=== PATIENT | male | born 1945 | race Asian ===

== ENCOUNTER 2020-03-17 12:14 | Emergency (ER) | payer MEDICARE, OTHER ==
[~2020-03-17] VITALS: Ht 170.2 cm; Wt 83.9 kg
[2020-03-17] MEDS ORDERED: Augmentin 875mg Tab ORAL ONE (12:45)
[2020-03-17] MEDS ORDERED: Tetanus/Diptheria/Pertussis IM ONE (12:45)
[2020-03-17 12:54] VITALS: BP 131/81
[2020-03-17] MEDS ORDERED: Lidocaine 2% 20mg/ml/EPI 0.01mg/ml 20ml ONE (13:02)
[2020-03-17] MEDS ORDERED: BACITRACIN15 GM TOPIC (13:19)
[2020-03-17] MEDS ORDERED: AUGMENTIN 875-1 EAC1 ORAL (13:19)
[2020-03-17] MEDS ORDERED: Bacitracin Oint UD TOPIC ONE ×2 (13:52→14:00)
[2020-03-17 14:14] VITALS: BP 125/78
--- NOTE | 2020-03-18 17:44 | Emergency Room Report ---
History of Present Illness General Chief Complaint: Animal Bite Source: Patient Present Illness HPI 74-year-old male presents status post dog bite. States his neighbors dog bit him on the right thumb and second finger. Today. Tetanus is not up-to-date. Denies pain. Denies any active bleeding. Denies any other injuries. No other aggravating relieving factors. Denies any other associated symptoms Allergies: Coded Allergies: No Known Allergies (Unverified , 03/17/20) COVID-19 Screening Contact w/high risk pt: No Experienced COVID-19 symptoms?: No COVID-19 Testing performed COUNSELOR CAMP: No - 6 months ago COVID-19 Screening: Negative COVID-19 COVID-19 Testing Source: clinic Patient History Past Medical History: none Past Surgical History: none Pertinent Family History: none Social History: Denies: smoking, alcohol use, drug use Immunizations: UTD Reviewed Nursing Documentation: PMH: Agreed; PSxH: Agreed Nursing Documentation-PMH Past Medical History: No Stated History Review of Systems All Other Systems: negative except mentioned in HPI Physical Exam Vital Signs Date Time Temp Pulse Resp B/P (MAP) Pulse Ox O2 Delivery O2 Flow Rate FiO2 03/17/20 12:16 98.2 92 18 138/85 (102) 97 Room Air Sp02 EP Interpretation: reviewed, normal General Appearance: no apparent distress, alert, GCS 15, non-toxic Head: normocephalic, atraumatic Eyes: bilateral eye normal inspection, bilateral eye PERRL ENT: hearing grossly normal, normal pharynx, no angioedema, normal voice Neck: full range of motion, supple/symm/no masses Respiratory: chest non-tender, lungs clear, normal breath sounds, speaking full sentences Cardiovascular #1: regular rate, rhythm, no edema Cardiovascular #2: 2+ carotid (R), 2+ carotid (L), 2+ radial (R), 2+ radial (L), 2+ dorsalis pedis (R), 2+ dorsalis pedis (L) Gastrointestinal: normal bowel sounds, non tender, soft, non-distended, no guarding, no rebound Rectal: deferred Genitourinary: normal inspection, no CVA tenderness Musculoskeletal: back normal, normal range of motion, gait/station normal, non- tender Neurologic: alert, motor strength/tone normal, oriented x3, sensory intact, responsive, speech normal Psychiatric: judgement/insight normal, memory normal, mood/affect normal, no suicidal/homicidal ideation Reflexes: 3+ bicep (R), 3+ bicep (L), 3+ tricep (R), 3+ tricep (L), 3+ knee (R), 3+ knee (L) Skin: laceration - 1.5cm laceration distal R thumb Lymphatic: no adenopathy Procedures Laceration/Wound Repair Laceration/Wound Repair : Consent: Verbal Wound Location: upper extremity - R thumb Wound's Depth, Shape: linear Wound Explored: clean Betadine Prep?: Yes Anesthesia: 1% Lidocaine Wound Debrided: minimal Wound Repaired With: sutures Suture Size/Type: 4:0, proline Layer Closure?: No Sterile Dressing Applied?: Yes Splint Applied?: No Sling Applied?: No Patient Tolerated: Well Complications: None Medical Decision Making Diagnostic Impression: Primary Impression: Sutured skin wound Additional Impressions: Dog bite Qualified Codes: W54.0XXA - Bitten by dog, initial encounter Bite by animal ER Course hospital Course 74-year-old M presents ED c/o dog bite R hand Clinical course Patient placed on stretcher. After initial history and physical, wound is irrigated. I ordered bacitracin, Augmentin, Tdap Wound is gaping. We will provide few loose sutures to approximate. Safe for discharge with close outpatient follow-up. I will provide referrals Diagnosis -dog bite , sutureed skin wound Stable and discharged to home with prescription Rx bacitracin, augmentin. return to ED in 7-10 days for suture removal. Followup with PMD. Return to ED if symptoms recur or worsen Last Vital Signs Date Time Temp Pulse Resp B/P (MAP) Pulse Ox O2 Delivery O2 Flow Rate FiO2 03/17/20 14:14 98.2 77 18 125/78 98 Room Air Status: improved Disposition: HOME, SELF-CARE Condition: Stable Scripts Bacitracin (Bacitracin) 28.4 Gm Oint...g. 1 APPLIC TOPIC THREE TIMES A DAY, #28.3 GM Prov: Michelle Joshua 03/17/20 Amoxicillin/Potassium Clav 875-125* (AUGMENTIN 875-125 TABLET*) 1 Each Tablet 1 TAB ORAL TWICE A DAY for 7 Days, #14 TAB Prov: Michelle Joshua 03/17/20 Referrals: [facility] - Peds ER - Patient Instructions: Animal Bite Additional Instructions: Take medications as directed. TAKE ALL ANTIBIOTICS --- Sutures to be removed in 10 days ----- Follow up with a Primary Care Provider in 3-5 days, even if your symptoms have resolved. --Please review list of primary care clinics, if you do not already have a primary care provider Return sooner to ED if new symptoms occur, or current symptoms become worse. - Please note that this Emergency Department Report was dictated using [employer] office developer technology software, occasionally this can lead to er roneous entry secondary to interpretation by the dictation equipment. Andre Pastor MD Mar 18, 2020 17:44
== END 2020-03-17 14:14 | disposition home or self-care (01) ==
LOC: EMR 13:02
DX: S61.051A Open bite of right thumb without damage to nail, initial encounter (principal); W54.0XXA Bitten by dog, initial encounter; Y93.9 Activity, unspecified; Y92.9 Unspecified place or not applicable
CPT/HCPCS: 90471; 90715; 99283

== ENCOUNTER 2020-03-26 10:50 | Emergency (ER) | payer MEDICARE ==
[~2020-03-26] VITALS: Ht 170.2 cm; Wt 81.6 kg
[~2020-03-26 10:50] MED LIST: AUGMENTIN 875-1 EAC1 ORAL; BACITRACIN15 GM TOPIC
[2020-03-26 10:52] VITALS: BP 128/82
[2020-03-26] MEDS ORDERED: AUGMENTIN 875-1 EAC1 ORAL (11:05)
[2020-03-26 11:08] VITALS: BP 122/74
--- NOTE | 2020-03-26 11:13 | Emergency Room Report ---
History of Present Illness General Chief Complaint: Wound Recheck/Suture Removal Source: Patient Present Illness HPI Patient is a 74-year-old male who presents to the ER for suture removal. Patient was bit by dog on March 18 and had loosely placed sutures in the emergency room. Patient states that he has been on Augmentin and topical antibiotics. He denies any fever or chills. He complains of some localized pain but denies any discharge from the wound. Allergies: Coded Allergies: No Known Allergies (Unverified , 03/17/20) COVID-19 Screening Contact w/high risk pt: No Experienced COVID-19 symptoms?: No COVID-19 Testing performed FIELD OPERATIONS COORDINATOR: No Patient History Reviewed Nursing Documentation: PMH: Agreed; PSxH: Agreed Nursing Documentation-PMH Past Medical History: No Stated History Review of Systems All Other Systems: negative except mentioned in HPI Physical Exam Vital Signs Date Time Temp Pulse Resp B/P (MAP) Pulse Ox O2 Delivery O2 Flow Rate FiO2 03/26/20 10:52 97.3 73 16 128/82 100 Room Air Sp02 EP Interpretation: reviewed, normal General Appearance: no apparent distress, alert, GCS 15, non-toxic Head: normocephalic, atraumatic Eyes: bilateral eye normal inspection, bilateral eye PERRL ENT: EOM grossly intact, no angioedema Neck: full range of motion Respiratory: no respiratory distress, no accessory muscle use, speaking full sentences Cardiovascular #1: regular rate, rhythm Gastrointestinal: non tender, soft Rectal: deferred Musculoskeletal: other - Right thumb healing laceration with [address] it was in a gauze wrap. No discharge or signs of cellulitis. Partially healed. 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 2 out of 5 sutures removed. I have given him another prescription for Augmentin to prevent any infections. He will continue to use topical antibiotics. Patient advised to return to the ER in 5 days for suture removal. After discussing risks and benefits of further diagnostics, treatment plans, as well as indications for and risks of admission, the patient is agreeable to being discharged home. I have explained that their evaluation and treatment in the emergency department today is an important step towards them achieving better health but that their evaluation today is not intended to replace further evaluation and treatment by a physician in their local clinic. I have explained that while the current findings suggest no immediate life threatening emergency they will require further evaluation and treatment by a physician of their choice in their area. They understand that it will be necessary for them to review the final reports of their ED visit with their clinic physician. We have reviewed indications for return to the Emergency Department. I have explained that additional time may need to pass and/or additional testing as an outpatient may be necessary before a definitive diagnosis can be made. They tell me they are willing to follow up as instructed within the timeframe I recommend. They appear to understand what we discussed. Additionally they understand that if they are unable to be seen by an outpatient physician they are welcome, and in fact should, return to the Emergency Department for a repeat evaluation. The patient is stable at time of discharge. Last Vital Signs Date Time Temp Pulse Resp B/P (MAP) Pulse Ox O2 Delivery O2 Flow Rate FiO2 03/26/20 11:08 97.9 85 20 122/74 97 Room Air Disposition: HOME, SELF-CARE Condition: Stable Scripts Amoxicillin/Potassium Clav 875-125* (AUGMENTIN 875-125 TABLET*) 1 Each Tablet 1 TAB ORAL TWICE A DAY, #14 TAB Prov: Jolynn Varela M.D. 03/26/20 Referrals: NON PHYSICIAN (PCP) [facility] Patient Instructions: Wound Check Additional Instructions: Return to the emergency room in 5 days for the other 3 sutures to be removed. The patient was provided with discharge instructions, notified to follow-up with a primary care doctor and or specialist in the next 24-48 hours, and to return to the ED if they have worsening of their symptoms. Please note that this report is being documented using [employer] technology. This can lead to erroneous entry secondary to incorrect interpretation by the dictating instrument. Jolynn Varela M.D. Mar 26, 2020 11:13
== END 2020-03-26 11:08 | disposition home or self-care (01) ==
LOC: EMR 11:06
DX: Z48.02 Encounter for removal of sutures (principal); S61.011D Laceration without foreign body of right thumb without damage to nail, subsequent encounter; W54.0XXD Bitten by dog, subsequent encounter
CPT/HCPCS: 99282